=== PATIENT | male | born 1995 | race Two or more races ===

== ENCOUNTER 2020-07-14 19:11 | Emergency (ER) | payer MEDICAID, SELFPAY ==
[2020-07-14 20:44] VITALS: BP 110/63; PULSE 88; RESP 16; TEMP 36.3; O2SAT 100
--- NOTE | 2020-07-14 21:34 | ED.MALEGU ---
HPI - Male Genitourinary General Chief complaint: Urogenital-Male Stated complaint: painful urination, and discharge Time Seen by Provider: 07/14/20 21:21 History of Present Illness HPI Narrative: Patient is a 24-year-old male presents today with having pain on urination is been ongoing for the last 2 days now with yellowish discharge. Patient is sexually active with 1 partner but did not use condoms. Did not have any testicular pain. Patient has no systemic complaints. Patient's home home. Related Data Previous Rx's Medication Instructions Recorded doxycycline hyclate 100 mg PO BID #14 tab 07/14/20 Allergies Allergy/AdvReac Type Severity Reaction Status Date / Time [facility] Allergy Intermediate LIP Verified 07/14/20 20:51 SWELLING citric acid Allergy Intermediate LIP Verified 07/14/20 20:51 [From [facility]] SWELLING sodium bicarbonate Allergy Intermediate LIP Verified 07/14/20 20:51 [facility] SWELLING ENVIRONMENTAL AdvReac Unknown RASH Uncoded 12/28/19 18:00 Review of Systems Review of Systems: Constitutional: No Weight loss, No Fever, No Chills, No Night Sweats, No Fatigue, No Malaise ENT/Mouth: No Hearing loss, No Ear Pain, No Nasal Congestion, No Sinus Pain, No Hoarseness, No sore throat, No Rhinorrhea, No Swallowing Difficulty Eyes: No Eye Pain, No Swelling, No Redness, No Foreign Body, No Discharge, No Vision Changes Cardiovascular: No Chest Pain, No SOB, No Dyspnea on Exertion, No Orthopnea, No Edema, No Palpitations Respiratory: No Cough, No Sputum, No Wheezing, No Smoke Exposure, No Dyspnea Gastrointestinal: No Nausea, No Vomiting, No Diarrhea, No Constipation, No abdominal Pain, No Hematochezia, No Melena Genitourinary: no irregular bleeding, positive penile discharge Musculoskeletal: No joint pain, No Myalgias, No Joint Swelling Skin: No Skin Lesions, No rash Neuro: No Weakness, No Numbness, No Paresthesias, No Loss of Consciousness, No Dizziness, No Headache Psych: No Anxiety/Panic, No Depression, No SI/HI/AH/VH, No Social Issues, Heme/Lymph: No Bruising, No Bleeding,No Lymphadenopathy Endocrine: No Polyuria, No Polydipsia, No Temperature Intolerance [facility] Past Medical History Attestation statement: The following information was validated with the patient. Medical History (Updated 07/14/20 @ 21:34 by Ashwini Lopez MD) Allergic urticaria Social History Social History Smoking Status: Never smoker Use of substances other than those prescribed or required for medical reasons: No Advance Directives: No Advance Directives Information Provided: Yes Physical Exam Vital Signs: Vital Signs: Last Vital Signs Temp 97.3 F 07/14/20 20:44 Pulse 88 07/14/20 20:44 Resp 16 07/14/20 20:44 BP 110/63 07/14/20 20:44 Pulse Ox 100 07/14/20 20:44 Body Mass Index 20.0 Appearance: Alert. Oriented X3. No acute distress. Eyes: Pupils equal, round and reactive to light. ENT: Pharynx normal. Neck: Normal inspection. Neck supple. No lymph nodes noted. No crepitus CVS: Normal heart rate and rhythm. Pulses normal. Normal S1 and S2 Respiratory: No respiratory distress. Breath sounds normal. No Wheezing. No rales Abdomen: Soft and nontender. No rigidity. No distention. good BS x4 Skin: Skin warm and dry. Normal skin color. Normal skin turgor. Extremities: No lower extremity edema. Neurovascular intact to all extremities. No Lacerations. No Rash Neuro: Oriented X 3. No motor deficit. No sensory deficit. Moving all extermities. No slurred speech MDM - Male Genitourinary MDM Narrative Medical decision making narrative: Positive yellowish discharge from the penis. Will discharge patient home with 1 dose of Rocephin IM. Also give doxycycline twice a day x7 days. Patient warned that sexual partner should also be tested. Refrain from sexual contact until partners are tested and treated. Currently in stable condition with discharge patient home. Discharge Plan Discharge Clinical Impression: Urethritis Patient Disposition: Home, Self-Care Instructions: Gonorrhea (ED), Nonspecific Urethritis in Men (ED) Prescriptions: New doxycycline hyclate 100 mg tablet 100 mg PO BID Qty: 14 RF: 0 Referrals: [facility] [Primary Care Provider] - 2 days
[2020-07-14 22:00] LABS: Glucose Urine UA NEG (NEG); Leukocyte Esterase Urine NEG (NEG); Nitrite Urine NEG (NEG); Specific Gravity - Urine 1.025 (1.005-1.025); Urine Blood NEG (NEG); Urine Ketones NEG (NEG); Urine Protein NEG (NEG-TRACE)
[2020-07-14 22:03] LABS: Appearance Urine HAZY; Color Urine YELLOW
[2020-07-14] MEDS: cefTRIAXone sodium 500 MG VIAL IM (22:15)
--- NOTE | 2020-07-14 22:15 | PC.NURSE ---
DR BECKER AWARE THAT THIS NURSE OVERRIDE THE LIDOCAINE 1% TO DILUTE THE ROCEPHIN IM BECAUSE THERE WAS NO ORDER. DR BECKER SAID HE WOULD PUT AN ORDER IN.
[2020-07-15 10:14] LABS: CT PCR DETECTED (Not Detect.); NG PCR DETECTED (Not Detect.)
== END 2020-07-14 22:27 | disposition home or self-care (01) ==
PROVIDERS: Emergency Provider Emergency Medicine Emergency Medical Services
DX: N34.2 Other urethritis (principal); A54.09 Other gonococcal infection of lower genitourinary tract; A74.9 Chlamydial infection, unspecified; R36.9 Urethral discharge, unspecified
CPT/HCPCS: 81003; 87491; 87591; 96372; 99283; 99284; J0696

== ENCOUNTER 2021-02-24 22:08 | Emergency (ER) | payer MEDICAID, SELFPAY ==
[2021-02-24 22:21] VITALS: BP 111/90; PULSE 60; RESP 17; TEMP 36.7; O2SAT 98; BMI 19.7
--- NOTE | 2021-02-25 00:28 | ED_ITS ---
HPI - GI Bleed General Chief complaint: General Medical Stated complaint: hemorrhoids Time Seen by Provider: 02/24/21 23:48 Source: patient Mode of arrival: ambulatory Limitations: no limitations History of Present Illness HPI Narrative: 25-year-old male who reports he has a past medical history of hemorrhoids presenting to the ED with complaints of a hemorrhoid that has not gone down for approximately 1 week despite using Preparation-H. Denies any fevers, chills, nausea/vomiting, rashes, abdominal pain, rectal bleeding, any recent rectal intercourse or trauma or any other symptoms complaints or concerns at this time. MD complaint: other (Hemorrhoids) Onset (ago): week(s) (1) Pain Consistency: constant Severity: severe Relieving factors: none Exacerbating factors: bowel movement Context: hemorrhoids Associated symptoms: denies other symptoms Treatments Prior to Arrival: OTC meds (Preparation H) Related Data Previous Rx's Medication Instructions Recorded doxycycline hyclate 100 mg tablet 100 mg PO BID #14 tab 07/14/20 Allergies Allergy/AdvReac Type Severity Reaction Status Date / Time aspirin [From [facility]] Allergy Intermediate LIP Verified 02/24/21 22:20 SWELLING citric acid Allergy Intermediate LIP Verified 02/24/21 22:20 [From [facility]] SWELLING sodium bicarbonate Allergy Intermediate LIP Verified 02/24/21 22:20 [From [facility]] SWELLING ENVIRONMENTAL AdvReac Unknown RASH Uncoded 12/28/19 18:00 Review of Systems Review of Systems: Constitutional : No Weight loss, No Fever, No Chills, No Night Sweats, No Fatigue, NoMalaise ENT/Mouth: No ear pain, No sore throat, No Difficulty swallowing Cardiovascular : No Chest Pain, No SOB, No Dyspnea on Exertion, No Orthopnea, NoEdema, No Palpitations Respiratory : No Cough, No Sputum, No Wheezing, No Dyspnea Gastrointestinal : No Nausea, No Vomiting, No abdominal pain, No Diarrhea, No blood streaked emesis, No coffee-ground emesis, No gross hematemesis, No blood streak stool, No gross hematochezia, No Melena Genitourinary : + hemorrhoids, No irregular bleeding, No Dysuria, No Urinary Frequency, No Hematuria,No Urinary Incontinence, No Urgency, No Flank Pain Musculoskeletal : No joint pain, No Myalgias, No Joint Swelling Skin : No Skin Lesions, No rash Neuro : No Weakness, No Numbness, No Paresthesias, No Loss of Consciousness, NoDizziness, No Headache Psych : No Social Issues, Heme/Lymph: No Bruising, No Bleeding,No Lymphadenopathy Endocrine : No Polyuria, No Polydipsia, No Temperature Intolerance Yes all other systems are reviewed and are negative [facility] Past Medical History Attestation statement: The following information was validated with the patient. Medical History Acute hemorrhoid Allergic urticaria Social History Social History Advance Directives: No Advance Directives Information Provided: Yes Physical Exam Vital Signs: Vital Signs: Last Vital Signs Temp 98.0 F 02/24/21 22: Pulse 60 02/24/21 22:21 Resp 17 02/24/21 22:21 BP 111/90 H 02/24/21 22: Pulse Ox 98 02/24/21 22: Body Mass Index 19.7 vital signs have been reviewed as normal and appeared to be correct. Blood pressure normal. Heart rate normal. Respiration rate normal. Temperature normal. Oxygen saturation normal. Appearance: Alert. Oriented X3. No acute distress. Head: Normal external exam. Normocephalic. Eyes: PERRLA. EOMI. Conjunctiva and sclera normal. Eyelids normal. ENT: Pharynx normal. Uvula midline. Moist mucous membranes. Neck: Normal inspection. Neck supple. FROM. No adenopathy. No meningeal signs. CVS: Normal heart rate and rhythm. Heart sound normal. No murmurs noted. Pulses normal throughout. Respiratory: No respiratory distress. Painless inspiration. Breath sounds normal. No wheezes/rales/rhonchi noted. Chest nontender. No accessory muscle usage noted or decreased air movement noted. Abdomen: Soft and nontender. Nondistended. No guarding. No rigidity. Bowel sounds normal in all 4 quadrants. No distention noted. No organomegaly noted. No visible injury noted. No rebound tenderness. Negative Rovsing sign. Negative obturator's sign. Negative psoas sign. Negative Townsend sign. : Patient noted to have a thrombosed external hemorrhoid no active bleeding or foreign bodies noted. Back: No CVA tenderness. Full range of motion noted. Skin: Skin warm and dry. Normal skin color. Normal skin turgor. No rashes/lesions/lacerations noted. Extremities: Extremities exhibit normal range of motion. Extremities nontender. Neuro: Oriented X 3. No motor deficit. No sensory deficit. Reflexes normal. Normal steady gait. Course Course Course Narrative: 25-year-old male who reports he has a past medical history of hemorrhoids presenting to the ED with complaints of a hemorrhoid that has not gone down for approximately 1 week despite using Preparation-H. Denies any fevers, chills, nausea/vomiting, rashes, abdominal pain, rectal bleeding, any recent rectal intercourse or trauma or any other symptoms complaints or concerns at this time. On exam patient noted to have a thrombosed external hemorrhoid and I explained to the patient that I will be having to I&D the hemorrhoid and he accepted the procedure so we moved him into another room and then when the tech went into the room to set up the procedure apparently the sister was in the room and she was not in the room when I evaluated the patient and she asked the tech what was going on with the patient and the tech told the patient that he should tell her his diagnosis if he feels comfortable because it is not in her scope of practice to tell a patient's family member a patient's diagnosis especially if it is a personal diagnosis. Then the sister started to explain that the tech also did not want to explain the procedure to her and that she was very rude about it. I explained to the sister that is not the tech scope of practice to explain a procedure to a patient when that is my job. Then I asked her to step out of the room while I performed the procedure and she continued to yell saying that she was not going anywhere until her brother received pain meds I explained to her that we should give numbing medication for hemorrhoids and she told her brother that she was not going to stay here and that he was not going to stay here and he was not going to be treated here and that they would be going to [facility] and she walked out of the room with the patient MDM - GI Bleed Medical Records Attestation: I reviewed the patient's medical records. Discharge Plan Discharge Clinical Impression: External hemorrhoid, thrombosed Patient Disposition: Elopement Prescriptions: No Action doxycycline hyclate 100 mg tablet 100 mg PO BID Qty: 14 RF: 0
--- NOTE | 2021-02-25 00:30 | PC.NURSE ---
PROVIDER WAS IN ROOM TO DO PROCEDURE. PT'S SISTER HAD COME INTO ROOM AND WAS ARGUING WITH PROVIDER. SISTER TOOK PATIENT AND SAID THAT THEY WERE LEAVING AND LEFT ROOM AND WENT BACK INTO [facility].
[2021-02-25] MEDS: Lidocaine HCl 2 % Jelly 5 ML TUBE 1 APPL TOPICAL (02:02)
[2021-02-25 02:20] VITALS: BP 123/78; PULSE 63; RESP 16; O2SAT 100
[2021-02-25] MEDS: Lidocaine HCl 2 % Urojet 10 ML JEL.PF.APP TOPICAL (02:27)
== END 2021-02-25 02:39 | disposition home or self-care (01) ==
PROVIDERS: Emergency Provider Student in an Organized Health Care Education/Training Program
DX: K64.5 Perianal venous thrombosis (principal)
CPT/HCPCS: 46083; 99284

== ENCOUNTER 2023-03-15 21:58 | Emergency (ER) | payer MEDICAID, SELFPAY ==
--- NOTE | 2023-03-15 22:23 | ED_ITS ---
HPI - General Adult General Chief complaint: Skin/Abscess/Foreign Body Stated complaint: body rash Time Seen by Provider: 03/16/23 02:05 Source: patient Mode of arrival: ambulatory Limitations: no limitations History of Present Illness HPI narrative: unexplained rash - preceded by thanksgiving viral syndrome that has resolved and atraumatic low back pain that is better no IVDA symptoms no new exposures. MD complaint: rash Onset (ago): day(s) (3) Location: chest, back and abdomen Radiation: non-radiation Severity: moderate Relieving factors: none Exacerbating factors: none Associated symptoms: denies other symptoms Treatments prior to arrival: none Related Data Previous Rx's Medication Instructions Recorded doxycycline hyclate 100 mg tablet 100 mg PO BID #14 tabs 07/14/20 famotidine 20 mg tablet (Pepcid) 20 mg PO DAILY abdominal 03/16/23 discomfort #7 tabs prednisone 20 mg tablet 40 mg (2 x 20 mg) PO DAILY 5 days 03/16/23 #10 tabs Allergies Allergy/AdvReac Type Severity Reaction Status Date / Time aspirin [From [facility]] Allergy Intermediate LIP Verified 02/24/21 22:20 SWELLING citric acid Allergy Intermediate LIP Verified 02/24/21 22:20 [From [facility]] SWELLING sodium bicarbonate Allergy Intermediate LIP Verified 02/24/21 22:20 [From [facility]] SWELLING ENVIRONMENTAL AdvReac Unknown RASH Uncoded 12/28/19 18:00 Review of Systems 2 Review of Systems: Constitutional : No Fever, No Chills ENT/Mouth : No sore throat, No Rhinorrhea Eyes: No Eye Pain, No Swelling, No Redness Cardiovascular : No Chest Pain, No SOB Respiratory : No Cough, No Sputum Gastrointestinal : No Nausea, No Vomiting, No Diarrhea, No abdominal Pain Genitourinary : No Dysuria, No Hematuria Musculoskeletal : No joint pain, No Myalgias, No Joint Swelling Skin : No Skin Lesions, positive skin rash Neuro : No Weakness, No Numbness, No Headache Psych : No Anxiety, No Depression Heme/Lymph: No Bruising, No Bleeding,No Lymphadenopathy Endocrine : No Polyuria, No Polydipsia All other systems reviewed and are negative PMFSH Past Medical History Medical History Acute hemorrhoid Allergic urticaria Social History Social History (Updated 03/16/23 @ 02:33 by Lorrie Brown DO) Patient Tobacco Use Status: Never used Tobacco Physical Exam ED Vital Signs: Vital Signs - 24 hr 03/15/23 22:27 Temperature 98.7 F Pulse Rate 111 H Respiratory Rate 18 Blood Pressure 124/78 Pulse Oximetry 98 Oxygen Delivery Method Room Air BMI result Body Mass Index 19.4 Appearance: Alert. Oriented X3. No acute distress. Eyes: Pupils equal, round and reactive to light. ENT: Pharynx normal. Neck: Normal inspection. Neck supple. CVS: Normal heart rate and rhythm. Pulses normal. Respiratory: No respiratory distress. Breath sounds normal. Abdomen: Soft and nontender. Skin: Skin warm and dry. Normal skin color. Normal skin turgor. diffuse red raised hives on arms torso stomach and back Extremities: No lower extremity edema. No calf ttp Neuro: Oriented X 3. No motor deficit. No sensory deficit. Course Course Course Narrative: RME performed by Khadijah Schilling PA-C. Patient is a 27 year old assigned male at presenting to the emergency department with a rash after a URI. Labs and swabs ordered. Patient placed back in the waiting room pending room availability and results. Medical Decision Making Medical Decision Making [facility] Narrative: 27 yo male with urticarial rash starting over the past few days that is not itchy but not going away no resp issues, not toxic, has mild resolved MSK back pain no IVDA, resolved viral illness over - no petechia or bruising noted. labs normal start on pepcid and steroids told to follow up if not better Differential Diagnosis Differential Diagnoses: The differential diagnosis associated with the presentation includes urticaria or viral Admission/Observation Consideration of admission/observation: Escalation of care including admission/observation considered Lab Data [facility] Lab Attestation statement: I reviewed the patient's lab results. 03/16/23 00:31 03/16/23 00:31 Labs: Lab Results 03/16/23 Range/Units 00:31 WBC 7.5 (4.8-10.8) X10*3/uL RBC 4.52 L (4.60-5.80) X10*6/uL Hgb 15.0 (14.0-18.0) g/dl Hct 43.4 (42.0-52.0) % MCV 96.0 (80.0-98.0) fL MCH 33.2 H (27.0-33.0) pg MCHC 34.6 (31.0-36.0) g/dl RDW 10.9 L (11.0-16.0) % Plt Count 349 (160-400) X10*3/uL MPV 9.5 (9.4-12.4) fL Immature Gran % (Auto) 0.3 (0.0-0.4) % Neut % (Auto) 75.1 H (45-73) % Lymph % (Auto) 18.1 L (20-40) % Stephenson % (Auto) 6.4 (2-11) % Eos % (Auto) 0.0 (0-4) % Baso % (Auto) 0.1 (0-2) % Lymph # (Auto) 1.4 (1.2-4.9) X10*3/uL Stephenson # (Auto) 0.5 (0.1-1.2) X10*3/uL Eos # (Auto) 0.0 (0.0-0.4) X10*3/uL Baso # (Auto) 0.0 (0.0-0.2) X10*3/uL Abs Immat Gran (auto) 0.02 (0.00-0.03) X10*3/uL Absolute Neuts (auto) 5.7 (2.0-8.3) x10*3/uL Absolute Nucleated RBC 0.000 (0.0-0.012) X10*3/uL Nucleated RBC % (auto) 0.0 (0.0-0.2) /100WBC Sodium 139 (135-145) mmol/L Potassium 4.0 (3.3-5.1) mmol/L Chloride 104 (96-108) mmol/L Carbon Dioxide 28 (22-29) mmol/L Anion Gap 11 L (12-20) BUN 9 (9-16) mg/dL Creatinine 0.95 (0.5-1.4) mg/dL Estim Creat Clear Calc 115.1 Estimated GFR > 60 Random Glucose 102 (60-115) mg/dL Calcium 9.7 (8.4-10.2) mg/dL Magnesium 2.1 (1.6-2.6) mg/dL Total Bilirubin 1.3 H (0.0-1.0) mg/dL AST 18 (5-37) U/L ALT 13 (0-40) U/L Alkaline Phosphatase 99 (39-117) U/L Total Protein 8.5 H (6.5-8.0) g/dL Albumin 4.3 (3.5-5.0) g/dL Influenza Type A (PCR) NEGATIVE (Negative) Influenza Type B (PCR) NEGATIVE (Negative) RSV RNA Qual (PCR) NEGATIVE (Negative) SARS-CoV-2 RNA (RT-PCR) NEGATIVE (Negative) S. pyogenes GrpA LYNDON Negative (Negative) External Record Review External record reviewed: Office record Prescription Management I considered prescription management with: Other Discharge Plan Discharge Clinical Impression: Urticaria Patient Disposition: Home, Self-Care Instructions: Urticaria (ED) Additional Instructions: return if no improvement in rash, fevers, increased bruising, or any other concerns. take medications with food. avoid motrin while on medications Prescriptions: New prednisone 20 mg tablet 40 mg PO DAILY 5 Days Qty: 10 0RF famotidine [Pepcid] 20 mg tablet 20 mg PO DAILY Qty: 7 0RF No Action doxycycline hyclate 100 mg tablet 100 mg PO BID Qty: 14 0RF
[2023-03-15 22:27] VITALS: BP 124/78; PULSE 111; RESP 18; TEMP 37.1; O2SAT 98; BMI 19.4
[2023-03-16 00:37] LABS: MANUAL DIFF FLAG NO
[2023-03-16 00:54] LABS: Alanine Aminotransferase 13 U/L (0-40); Albumin Level 4.3 g/dL (3.5-5.0); Alkaline Phosphatase 99 U/L (39-117); Anion Gap 11 (12-20); Aspartate Amino Transferase 18 U/L (5-37); Bilirubin Total 1.3 mg/dL (0.0-1.0); Blood Urea Nitrogen 9 mg/dL (9-16); Calcium 9.7 mg/dL (8.4-10.2); Carbon Dioxide 28 mmol/L (22-29); Chloride 104 mmol/L (96-108); Creatinine Clr Calc Pharmacy 115.1; Estimated Glomerular Filt Rate > 60; Glucose Random 102 mg/dL (60-115); Magnesium 2.1 mg/dL (1.6-2.6); Sodium 139 mmol/L (135-145); Total Protein 8.5 g/dL (6.5-8.0)
[2023-03-16 00:57] LABS: IDNOW Serial# 08D9AD1C; Strep A Nucleic Acid Negative (Negative)
[2023-03-16 01:12] LABS: Basophils Percent Auto 0.1 % (0-2); Hematocrit 43.4 % (42.0-52.0); Imm Gran Abs Auto 0.02 X10*3/uL (0.00-0.03); Imm Gran Pct Auto 0.3 % (0.0-0.4); Lymphocytes Absolute Auto 1.4 X10*3/uL (1.2-4.9); Lymphocytes Percent Auto 18.1 % (20-40); Mean Corpuscular HGB Conc 34.6 g/dl (31.0-36.0); Mean Corpuscular Hemoglobin 33.2 pg (27.0-33.0); Mean Platelet Volume 9.5 fL (9.4-12.4); Monocytes Absolute Auto 0.5 X10*3/uL (0.1-1.2); Monocytes Percent Auto 6.4 % (2-11); Neutrophils Absolute Auto 5.7 x10*3/uL (2.0-8.3); Neutrophils Percent Auto 75.1 % (45-73); Platelet Count 349 X10*3/uL (160-400); Red Blood Count 4.52 X10*6/uL (4.60-5.80); Red Cell Distribution Width 10.9 % (11.0-16.0); White Blood Count 7.5 X10*3/uL (4.8-10.8)
[2023-03-16 01:13] LABS: Influenza A PCR NEGATIVE (Negative); Influenza B PCR NEGATIVE (Negative); Resp Syncy Virus RNA Qual PCR NEGATIVE (Negative); SARS COV2 PCR INHOUSE NEGATIVE (Negative)
== END 2023-03-16 02:46 | disposition home or self-care (01) ==
PROVIDERS: Physician Assistant Medical; Emergency Provider Emergency Medicine; PCP General Practice
DX: L50.0 Allergic urticaria (principal); Z20.822 Contact with and (suspected) exposure to COVID-19; Z20.828 Contact with and (suspected) exposure to other viral communicable diseases; Z79.899 Other long term (current) drug therapy
CPT/HCPCS: 0241U; 80053; 83735; 85025; 87651; 99282; 99283

== ENCOUNTER 2023-03-24 16:19 | Outpatient (REF) | payer MEDICAID, SELFPAY ==
[2023-03-25 02:23] LABS: CT PCR NOT DETECTED (Not Detect.); NG PCR NOT DETECTED (Not Detect.)
[2023-03-25 08:11] LABS: HIV AB/AG Nonreactive (Nonreactive); HIV Num 1 0.06 S/CO (0.00-0.99); ~HepC Num1 0.53 S/CO (0.00-0.79); ~Hepatitis C Antibody Nonreactive (Nonreactive)
[2023-03-29 15:18] LABS: RPR Rapid Plasma Reagin REACTIVE (NON-REACTIVE)
== END 2023-03-24 16:20 | disposition home or self-care (01) ==
LOC: HO.HHCL 16:19
PROVIDERS: Visit Provider General Practice
DX: R21 Rash and other nonspecific skin eruption (principal)
CPT/HCPCS: 0353U; 86592; 86593; 86803; 87389

== ENCOUNTER 2023-04-01 19:30 | Emergency (ER) | payer MEDICAID, SELFPAY ==
[2023-04-01 19:36] VITALS: BP 115/77; PULSE 115; RESP 18; TEMP 37; O2SAT 97; BMI 25.8
--- NOTE | 2023-04-01 19:37 | ED_ITS ---
HPI - General Adult General Chief complaint: Urogenital-Male Stated complaint: Allergy? STD? Time Seen by Provider: 04/01/23 20:58 Source: patient and old records reviewed Mode of arrival: ambulatory Limitations: no limitations History of Present Illness HPI narrative: 27 yo male with rash that started in beginning of February that initially was just hives no systemic or complaints - was treated with urticarial medications it did not i mprove and he started to have malaise and fatigue and not feel well. He saw his PCP after and disclosed unprotected sex and systemic symptoms so RPR was sent off and came back positive 03/25. He states the PCP kept contacting his mom so he didn't get treatment for one week so he is very upset they didn't call him. I explained he has early syphillis and we can give him a penicillin shot at this time MD complaint: + syphillis test Onset (ago): day(s) (7) Location: chest, genitals, left, right and upper extremity Radiation: non-radiation Severity: mild Relieving factors: none Exacerbating factors: none Associated symptoms: other (rash, malaise, had flu like illness before the still has rash on penis and palms) Treatments prior to arrival: none Related Data Previous Rx's Medication Instructions Recorded doxycycline hyclate 100 mg tablet 100 mg PO BID #14 tabs 07/14/20 famotidine 20 mg tablet (Pepcid) 20 mg PO DAILY abdominal 03/16/23 discomfort #7 tabs prednisone 20 mg tablet 40 mg (2 x 20 mg) PO DAILY 5 days 03/16/23 #10 tabs Allergies Allergy/AdvReac Type Severity Reaction Status Date / Time aspirin [From [facility]] Allergy Intermediate LIP Verified 04/01/23 19:46 SWELLING citric acid Allergy Intermediate LIP Verified 04/01/23 19:46 [From [facility]] SWELLING sodium bicarbonate Allergy Intermediate LIP Verified 04/01/23 19:46 [From [facility]] SWELLING naproxen [From [facility]] Allergy Swelling Verified 04/01/23 19:46 ENVIRONMENTAL AdvReac Unknown RASH Uncoded 12/28/19 18:00 Review of Systems Review of Systems: Constitutional : No Fever, No Chills, pos fatigue, pos malaise ENT/Mouth : no oral swelling, No Hoarseness, No Swallowing Difficulty Eyes: No Eye Pain, No Swelling, No Redness Cardiovascular : No Chest Pain, No SOB Respiratory : No Cough, No Sputum, No Wheezing, No Dyspnea Gastrointestinal : No Nausea, No Vomiting, No Diarrhea, No abdominal Pain Genitourinary : No Dysuria, No Urinary Frequency, No Hematuria Musculoskeletal : No joint pain, No Myalgias, No Joint Swelling Skin : pos Skin Lesions, positive rash Neuro : No Weakness, No Numbness, No Headache Psych : No Anxiety/Panic, No Depression All other systems reviewed and are negative [facility] Past Medical History Attestation statement: The following information was validated with the patient. Source: old records reviewed Medical History Acute hemorrhoid Allergic urticaria Social History Social History Patient Tobacco Use Status: Never used Tobacco Advance Directives: No Advance Directives Information Provided: No Physical Exam ED Vital Signs: Vital Signs - 24 hr 04/01/23 19:36 Temperature 98.6 F Pulse Rate 115 H Respiratory Rate 18 Blood Pressure 115/77 Pulse Oximetry 97 Oxygen Delivery Method Room Air BMI result Body Mass Index 25.8 Appearance: Alert. Oriented X3. No acute distress. slightly agitated Eyes: Pupils equal, round and reactive to light. ENT: Pharynx normal. Neck: Normal inspection. Neck supple. CVS: Normal heart rate and rhythm. Pulses normal. Respiratory: No respiratory distress. Breath sounds normal. Abdomen: Soft and nontender. Skin: Skin warm and dry. Normal skin color. Normal skin turgor. flat pink lesions on palms, lower abdomen and shaft of penis Extremities: No lower extremity edema. Neuro: Oriented X 3. No motor deficit. No sensory deficit. Course Course Course Narrative: RME: 27yo M w/PMHx gonorrhea, presenting to the ED c/o painless rash diffusely over body x weeks, saw PCP and STI testing was performed. States his mother received 2 phone calls today and hes usure why. Appears patient Syphilis titer & RPR are positive from 03/24/23 > was not tx to his knowledge. Patient needs tx diffuse rash noted over body Full HPI, ROS and PE to be performed by primary ED provider. 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 Differential Diagnosis Differential Diagnoses: The differential diagnosis associated with the presentation includes known pos syphillis test Lab Data [facility] Lab Attestation statement: I reviewed the patient's lab results. External Record Review External record reviewed: Inpatient record, Outpatient record and Prior outpatient labs Discharge Plan Discharge Clinical Impression: Acquired syphilis Patient Disposition: Home, Self-Care Instructions: Penicillin G Benzathine/Penicillin G Procaine (By injection), Syphilis (ED) Additional Instructions: you need to practice safe sex. your partner should be notified and you should not have intercourse until both are treated. return for worsening symptoms, fevers, or any other concerns. please follow up with your doctor in one week. Prescriptions: No Action doxycycline hyclate 100 mg tablet 100 mg PO BID Qty: 14 0RF prednisone 20 mg tablet 40 mg PO DAILY 5 Days Qty: 10 0RF famotidine [Pepcid] 20 mg tablet 20 mg PO DAILY Qty: 7 0RF
[2023-04-01] MEDS: Penicillin G Benzathine 2,400,000 UNIT/4 ML SYRINGE 2400000 UNIT IM (21:48)
== END 2023-04-01 21:54 | disposition home or self-care (01) ==
PROVIDERS: Emergency Provider Emergency Medicine; PCP General Practice
DX: A51.0 Primary genital syphilis (principal); L50.8 Other urticaria; R53.81 Other malaise; Z79.899 Other long term (current) drug therapy
CPT/HCPCS: 96372; 99282; 99284; J0561

== ENCOUNTER 2023-04-26 18:02 | Emergency (ER) | payer MEDICAID, SELFPAY ==
--- NOTE | ~2023-04-26 | US_ITS ---
EXAMINATION: US ABDOMEN LIMITED CLINICAL INFORMATION: Pain. COMPARISON: None available. TECHNIQUE: Real-time imaging of the right upper quadrant abdominal viscera. FINDINGS: PANCREAS: Not assessed. LIVER: Visualized liver is normal in appearance. There is no intrahepatic biliary duct dilatation seen. GALLBLADDER: The gallbladder is physiologically distended. There is a single mobile gallstone within the gallbladder. There is also a 5 x 2 x 3 mm echogenic structure adherent to the gallbladder wall. There is no gallbladder wall thickening or pericholecystic fluid. The patient did not report pain when scanning the right upper quadrant. COMMON BILE DUCT: Normal in caliber measuring 0.23 cm in diameter. RIGHT KIDNEY: Not assessed FREE FLUID: None. US/US abdomen limited IMPRESSION: 1. Cholelithiasis. No evidence of acute cholecystitis. 2. 5 x 2 x 3 mm echogenic structure adherent to the gallbladder wall, likely representing a small polyp.
--- NOTE | ~2023-04-26 | XR_ITS ---
EXAMINATION: XR CHEST CLINICAL INFORMATION: Cough. COMPARISON: None available. TECHNIQUE: 2 views of the chest were obtained. FINDINGS: No significant abnormality is noted involving the heart, lungs, mediastinum, bony thorax or soft tissues. XR/XR chest 2V IMPRESSION: Unremarkable examination.
[2023-04-26 19:25] VITALS: BP 90/61; PULSE 88; RESP 17; TEMP 37; O2SAT 99
[2023-04-26 21:31] VITALS: BP 111/60; PULSE 97; RESP 18; TEMP 36.6; O2SAT 97
--- NOTE | 2023-04-26 23:24 | ED_ITS ---
HPI - General Adult General Chief complaint: Nausea/Vomiting/Diarrhea Stated complaint: vomiting Time Seen by Provider: 04/26/23 22:46 Source: patient, RN notes reviewed and old records reviewed Mode of arrival: ambulatory Limitations: no limitations History of Present Illness HPI narrative: 27-year-old male with no significant past medical history presents for evaluation of vomiting. Patient reports he started coughing 2-3 days ago. Denies any shortness of breath. He also complains of a headache He reports that he vomited multiple times today He reports chills but denies fevers. He reports that his roommate had similar symptoms a few days ago Denies any severe abdominal pains Related Data Previous Rx's Medication Instructions Recorded doxycycline hyclate 100 mg tablet 100 mg PO BID #14 tabs 07/14/20 famotidine 20 mg tablet (Pepcid) 20 mg PO DAILY abdominal 03/16/23 discomfort #7 tabs prednisone 20 mg tablet 40 mg (2 x 20 mg) PO DAILY 5 days 03/16/23 #10 tabs ondansetron 4 mg disintegrating 4 mg PO Q8H PRN nausea and 04/27/23 tablet vomiting #20 tabs Allergies Allergy/AdvReac Type Severity Reaction Status Date / Time aspirin [From HEATHER-SELTZER] Allergy Intermediate LIP Verified 04/01/23 19:46 SWELLING citric acid Allergy Intermediate LIP Verified 04/01/23 19:46 [From HEATHER-SELTZER] SWELLING sodium bicarbonate Allergy Intermediate LIP Verified 04/01/23 19:46 [From HEATHER-SELTZER] SWELLING naproxen [From Aleve] Allergy Swelling Verified 04/01/23 19:46 ENVIRONMENTAL AdvReac Unknown RASH Uncoded 12/28/19 18:00 Review of Systems 2 Constitutional: Constitutional: Reports body ache(s), Denies chills, Denies fever(s) and Reports headache(s) Eyes: Eyes: Denies blurry vision ENT: Reports headache(s) Cardiovascular: Cardiovascular: Denies chest pain and Denies dyspnea Respiratory: Respiratory: Reports cough and Denies dyspnea Gastrointestinal: Gastrointestinal: Denies abdominal pain, Denies hematochezia, Reports nausea and Reports vomiting Musculoskeletal: Musculoskeletal: Denies back pain Integumentary/Breasts: Skin/Breast: Denies rash Neurologic: Reports headache(s) PMFSH Past Medical History Onset Date is defined in the Problem List Problems that require an onset date and time if occurred within 24 hrs of arrival to the ED Aortic Dissection and Rupture; Neurologic impairment; Cardiopulmonary Arrest; Endotracheal Intubation; Insertion or Replacement of Mechanical Circulatory Assist Device Medical History Acute hemorrhoid Allergic urticaria Social History Social History Alcohol intake: current Alcohol intake frequency: holidays/special occasions only Patient Tobacco Use Status: Never used Tobacco Smoked in Last 30 Days: No Use of substances other than those prescribed or required for medical reasons: Yes Substance Use Type: Marijuana Advance Directives: No Advance Directives Information Provided: No Physical Exam ED Vital Signs: Vital Signs - 24 hr 04/26/23 19:25 04/26/23 21:31 04/27/23 00:29 Temperature 98.6 F 97.8 F 98.1 F Pulse Rate 88 97 90 Respiratory Rate 17 18 16 Blood Pressure 90/61 111/60 112/66 Pulse Oximetry 99 97 94 Oxygen Delivery Method Room Air Room Air Room Air BMI result Body Mass Index 20.0 Const General: healthy appearing, comfortable, no acute distress, alert and awake Nutritional Appearance: well nourished Orientation/consciousness: patient oriented x3 HENMT Head: Yes normocephalic and Yes atraumatic Eyes Eyelids: Yes eyelids normal Conjunctivae: conjunctivae normal Sclerae: sclerae normal Corneas: corneas normal Pupils: Equal, round and reactive pupils present EOM: EOMs intact bilaterally Neck Neck: Yes full ROM Resp Effort & Inspection: normal respiratory effort, able to speak in complete sentences, no audible wheezes and not labored Auscultation: clear to auscultation bilaterally Cardio Rate: regular rate Rhythm: regular rhythm GI Inspection: No distended Palpation (GI): Soft to palpation, not firm, nontender, no guarding and not rigid Auscultation: normoactive bowel sounds Skin General skin exam: no rashes or lesions noted and elasticity normal Neuro General: patient oriented x3 Cranial nerves: Yes Equal, round and reactive pupils present and Yes Bilaterally intact EOM present Cognition (Neuro): normal cognition Extrem Other: Moving all extremities well without any obvious deformities Course Reevaluation(s) Reevaluation #1: Patient's influenza was negative and therefore added basic labs which of the T bili of 3.9. Given the abdominal pain and vomiting ordered an ultrasound of the gallbladder which did not show any concerning abnormalities. There was 1 small gallstone noted however there is no evidence of pericholecystic fluid, no gallbladder wall thickening or CBD dilatation. The patient can be discharged to follow-up with surgery as an outpatient will discharge with p.o. Zofran Time: 02:24 Medications Administered Discontinued Medications Generic Name Dose Route Start Last Admin Trade Name Freac PRN Reason Stop Dose Admin Ondansetron HCl 4 mg 04/26/23 23:19 04/27/23 00:15 Ondansetron Odt 4 Mg Tab.Rapdis TRANSLINGU 04/26/23 23:20 4 mg ONCE ONE Administration Medical Decision Making Medical Decision Making [facility] Narrative: 27-year-old male with no significant past medical history presents for evaluation of cough, body aches and vomiting. His physical exam is reassuring his vital signs are stable. We will give a dose of Zofran, test the patient for influenza and COVID-19. I have high suspicion for influenza a. Will reconsider labs if he is viral negative, however given the reassuring exam and stable vitals I have a low suspicion for surgical abdomen Differential Diagnosis Differential Diagnoses: The differential diagnosis associated with the presentation includes Viral syndrome COVID-19 Influenza Upper respiratory infection Nausea and vomiting Gastroenteritis Lab Data MDM Lab Attestation statement: I reviewed the patient's lab results. No leukocytosis, no significant electrolyte abnormalities. Patient's T bili was elevated to 3.9. LFTs are all within normal limits. 04/27/23 00:07 04/27/23 00:07 Labs: Lab Results 04/26/23 04/27/23 Range/Units 23:00 00:07 WBC 10.3 (4.8-10.8) X10*3/uL RBC 4.90 (4.60-5.80) X10*6/uL Hgb 16.3 (14.0-18.0) g/dl Hct 47.4 (42.0-52.0) % MCV 96.7 (80.0-98.0) fL MCH 33.3 H (27.0-33.0) pg MCHC 34.4 (31.0-36.0) g/dl RDW 11.8 (11.0-16.0) % Plt Count 258 D (160-400) X10*3/uL MPV 8.7 L (9.4-12.4) fL Immature Gran % (Auto) 0.2 (0.0-0.4) % Neut % (Auto) 89.6 H (45-73) % Lymph % (Auto) 7.0 L (20-40) % [place] % (Auto) 2.6 (2-11) % Eos % (Auto) 0.4 (0-4) % Baso % (Auto) 0.2 (0-2) % Lymph # (Auto) 0.7 L (1.2-4.9) X10*3/uL [place] # (Auto) 0.3 (0.1-1.2) X10*3/uL Eos # (Auto) 0.0 (0.0-0.4) X10*3/uL Baso # (Auto) 0.0 (0.0-0.2) X10*3/uL Abs Immat Gran (auto) 0.02 (0.00-0.03) X10*3/uL Absolute Neuts (auto) 9.2 H (2.0-8.3) x10*3/uL Absolute Nucleated RBC 0.000 (0.0-0.012) X10*3/uL Nucleated RBC % (auto) 0.0 (0.0-0.2) /100WBC Sodium 139 (135-145) mmol/L Potassium 4.5 (3.3-5.1) mmol/L Chloride 102 (96-108) mmol/L Carbon Dioxide 28 (22-29) mmol/L Anion Gap 14 (12-20) BUN 16 (9-16) mg/dL Creatinine 1.09 (0.5-1.4) mg/dL Estim Creat Clear Calc 103.5 Estimated GFR > 60 Random Glucose 115 (60-115) mg/dL Calcium 9.8 (8.4-10.2) mg/dL Total Bilirubin 3.9 H (0.0-1.0) mg/dL AST 21 (5-37) U/L ALT 21 (0-40) U/L Alkaline Phosphatase 82 (39-117) U/L Total Protein 8.1 H (6.5-8.0) g/dL Albumin 4.6 (3.5-5.0) g/dL Lipase 11 (8-78) U/L COVID-19 (ELAINE) Negative (Negative) COVID-19 Clin Com See Note Influenza Type A (LYNDON) Negative (Negative) Influenza Type B (LYNDON) Negative (Negative) Influenza A & B Note See Note Independent Interpretation I performed an independent interpretation of an: Plain X-Ray (Unremarkable chest x-ray) and Ultrasound (No evidence of gallbladder wall thickening or CBD dilatation) Discharge Plan Discharge Clinical Impression: Cholelithiasis Patient Disposition: Home, Self-Care Instructions: Gallstones (ED) Additional Instructions: Your workup showed an elevated total bilirubin and therefore a gallbladder ultrasound was ordered which shows 1 gallstone but no evidence of gallbladder infection. The rest of your workup was reassuring. Use Zofran as needed for nausea/vomiting. Drink lots of fluids, small sips at a time You may follow-up with general surgery as an outpatient for elective gallbladder removal Prescriptions: New ondansetron 4 mg tablet,disintegrating 4 mg PO Q8H PRN (Reason: nausea and vomiting) Qty: 20 0RF No Action doxycycline hyclate 100 mg tablet 100 mg PO BID Qty: 14 0RF prednisone 20 mg tablet 40 mg PO DAILY 5 Days Qty: 10 0RF famotidine [Pepcid] 20 mg tablet 20 mg PO DAILY Qty: 7 0RF Referrals: Nicko Gauthier MD [Physician] - (Cholelithiasis)
[2023-04-26 23:38] LABS: COVID-19 Test Negative (Negative); IDNOW Serial# 08D9AD1C
[2023-04-26 23:39] LABS: IDNOW Serial# 152EDE1D; Influenza A Negative (Negative); Influenza B2 Negative (Negative)
[2023-04-27 00:11] LABS: MANUAL DIFF FLAG NO
[2023-04-27] MEDS: Ondansetron ODT 4 MG TAB.RAPDIS TRANSLINGU (00:15)
[2023-04-27 00:25] LABS: Basophils Percent Auto 0.2 % (0-2); Eosinophils Percent Auto 0.4 % (0-4); Hematocrit 47.4 % (42.0-52.0); Hemoglobin 16.3 g/dl (14.0-18.0); Imm Gran Abs Auto 0.02 X10*3/uL (0.00-0.03); Imm Gran Pct Auto 0.2 % (0.0-0.4); Lymphocytes Absolute Auto 0.7 X10*3/uL (1.2-4.9); Mean Corpuscular HGB Conc 34.4 g/dl (31.0-36.0); Mean Corpuscular Hemoglobin 33.3 pg (27.0-33.0); Mean Corpuscular Volume 96.7 fL (80.0-98.0); Mean Platelet Volume 8.7 fL (9.4-12.4); Monocytes Absolute Auto 0.3 X10*3/uL (0.1-1.2); Monocytes Percent Auto 2.6 % (2-11); Neutrophils Absolute Auto 9.2 x10*3/uL (2.0-8.3); Neutrophils Percent Auto 89.6 % (45-73); Platelet Count 258 X10*3/uL (160-400); Red Cell Distribution Width 11.8 % (11.0-16.0); White Blood Count 10.3 X10*3/uL (4.8-10.8)
[2023-04-27 00:29] VITALS: BP 112/66; PULSE 90; RESP 16; TEMP 36.7; O2SAT 94
[2023-04-27 00:31] LABS: Alanine Aminotransferase 21 U/L (0-40); Albumin Level 4.6 g/dL (3.5-5.0); Alkaline Phosphatase 82 U/L (39-117); Anion Gap 14 (12-20); Aspartate Amino Transferase 21 U/L (5-37); Bilirubin Total 3.9 mg/dL (0.0-1.0); Blood Urea Nitrogen 16 mg/dL (9-16); Calcium 9.8 mg/dL (8.4-10.2); Carbon Dioxide 28 mmol/L (22-29); Chloride 102 mmol/L (96-108); Creatinine Clr Calc Pharmacy 103.5; Estimated Glomerular Filt Rate > 60; Glucose Random 115 mg/dL (60-115); Lipase 11 U/L (8-78); Potassium 4.5 mmol/L (3.3-5.1); Sodium 139 mmol/L (135-145); Total Protein 8.1 g/dL (6.5-8.0)
[2023-04-27 03:13] VITALS: BP 110/60; PULSE 89; RESP 18; TEMP 36.6; O2SAT 97
== END 2023-04-27 03:14 | disposition home or self-care (01) ==
PROVIDERS: Physician Assistant; Emergency Provider Emergency Medicine; PCP General Practice
DX: K80.20 Calculus of gallbladder without cholecystitis without obstruction (principal); R11.2 Nausea with vomiting, unspecified; R05.9 Cough, unspecified; R10.2 Pelvic and perineal pain; Z11.52 Encounter for screening for COVID-19; Z20.828 Contact with and (suspected) exposure to other viral communicable diseases; Z79.899 Other long term (current) drug therapy
CPT/HCPCS: 36415; 71046; 76705; 80053; 83690; 85025; 87502; 87635; 99284

== ENCOUNTER 2023-05-12 13:28 | Outpatient (AMB) | payer MEDICAID, SELFPAY ==
--- NOTE | 2023-05-12 13:38 | MHC.OFFVIS ---
Intake Vital Signs 05/12/23 13:44 Height 6 ft 3 in Weight 160 lb 0.008 oz BMI 20.0 Intake Visit Reasons: [place] [facility] [place] Intake Note: This patient [place] [facility] [place] for Cholelithiasis. Pt c/o; reports no RUQ pain at this time, reports no postprandial nausea or vomiting. US ABD:04/27/[address] Clearer Required: No Accompanied by: Self / Same As Patient Allergies aspirin [From HEATHER-SELTZER] Allergy (Intermediate, Verified 05/12/23 13:45) LIP SWELLING citric acid [From HEATHER-SELTZER] Allergy (Intermediate, Verified 05/12/23 13:45) LIP SWELLING sodium bicarbonate [From HEATHER-SELTZER] Allergy (Intermediate, Verified 05/12/23 13:45) LIP SWELLING naproxen [From Aleve] Allergy (Verified 05/12/23 13:45) Swelling ENVIRONMENTAL Adverse Reaction (Unknown, Uncoded 05/12/23 13:45) RASH Medication List - Last Reconciled 05/12/23 by Nicko Gauthier MD doxycycline hyclate 100 mg PO BID famotidine (Pepcid) 20 mg PO DAILY ondansetron 4 mg PO Q8H PRN prednisone 40 mg (2 x 20 mg) PO DAILY 5 days HPI [place]iasis[place] [facility] [place] HPI Details 27-year-old male referred for a gallstone. He went to the ER last April 26, 2023 for what he described as multiple episodes of vomiting. He did not have any pain at that time. He says that he thought he had a stomach flu. He however was sent for had an ultrasound showing a 1 gallstone and a possible gallbladder polyp. He says that he has had no symptoms since that time. He denies any abdominal pain at all. Denies problems with oral intake. [facility] Medical History (Updated 05/12/23 @ 13:42 by Nicko Gauthier MD) Gallstone Acute hemorrhoid Allergic urticaria Social History Alcohol intake: current Alcohol intake frequency: holidays/special occasions only Patient Tobacco Use Status: Never used Tobacco Substance Use Type: Marijuana Review of Systems Const Denies chills and Denies fever(s) Card Denies chest pain, Denies dyspnea and Denies dyspnea on exertion Resp Denies cough, Denies dyspnea and Denies dyspnea on exertion GI Denies hematochezia and Denies change in bowel habits Denies hematuria and Denies difficulty urinating Musc Denies back pain and Denies limited range of motion Neuro Denies focal weakness and Denies convulsions Psych Denies depression and Denies mood swings Physical Exam Const General: comfortable and no acute distress Orientation/consciousness: patient oriented x3 Neck Neck: Yes no lymphadenopathy Resp Auscultation: clear to auscultation bilaterally Cardio Rhythm: regular rhythm GI Palpation (GI): Soft to palpation, nontender and no guarding Neuro General: patient oriented x3 Assessment & Plan Assessment & Plan (1) Gallstone: Code(s): K80.20 - Calculus of gallbladder without cholecystitis without obstruction Plan: He had gone to the ER last April 27 because of vomiting. At that time, he says that he never had any pain on the abdomen, much less on the right upper quadrant. He however was sent because of a gallstone which seems to be an incidental finding. His symptoms appear to have been from some form of gastroenteritis He says he does not want to proceed with cholecystectomy at this time as he had always thought that he had some form of food poisoning or gastroenteritis. He has never had any problems since that time I told him to monitor his symptoms closely. I gave him my card so that he can follow up with me once he considers cholecystectomy. I did Coding Level of Care Code New Pt Level 3 (29088) Diagnoses Gallstone K80.20
== END 2023-05-12 14:01 | disposition home or self-care (01) ==
PROVIDERS: PCP General Practice; Visit Provider Surgery
DX: K80.20 Calculus of gallbladder without cholecystitis without obstruction (principal)
CPT/HCPCS: 99203

== ENCOUNTER → 2023-05-12 13:28 | Outpatient (BNVA) | payer MEDICAID, SELFPAY | PROVIDERS: PCP General Practice; Visit Provider Surgery | DX: K80.20 Calculus of gallbladder without cholecystitis without obstruction (principal) | CPT/HCPCS: 99202 ==

== ENCOUNTER 2024-03-01 15:30 | Outpatient (REF) | payer MEDICAID, SELFPAY ==
[2024-03-02 04:46] LABS: HIV AB/AG Nonreactive (Nonreactive); HIV Num 1 0.06 S/CO (0.00-0.99); ~HepC Num1 0.22 S/CO (0.00-0.79); ~Hepatitis C Antibody Nonreactive (Nonreactive)
[2024-03-02 07:11] LABS: CT PCR NOT DETECTED (Not Detect.); NG PCR NOT DETECTED (Not Detect.)
[2024-03-03 12:33] LABS: RPR Rapid Plasma Reagin REACTIVE (NON-REACTIVE)
== END 2024-03-01 15:31 | disposition home or self-care (01) ==
LOC: HO.HHCL 15:30
PROVIDERS: Visit Provider General Practice
DX: Z11.4 Encounter for screening for human immunodeficiency virus [HIV] (principal); R21 Rash and other nonspecific skin eruption; Z86.19 Personal history of other infectious and parasitic diseases
CPT/HCPCS: 86592; 86593; 86803; 87389; 87491; 87591

== ENCOUNTER 2024-03-31 08:30 | Emergency (ER) | payer MEDICAID, SELFPAY ==
[2024-03-31 08:33] VITALS: BP 125/84; PULSE 93; RESP 20; TEMP 36.8; O2SAT 96; BMI 17.5
[2024-03-31 08:52] LABS: Appearance Urine Cloudy; Color Urine Yellow; Glucose Urine UA Negative (Negative); Leukocyte Esterase Urine Negative (Negative); Nitrite Urine Negative (Negative); PH 6.5 (5.0-9.0); Specific Gravity - Urine >= 1.030 (1.005-1.025); Urine Blood Negative (Negative); Urine Ketones Negative (Negative); Urine Protein Negative (Neg-Trace)
--- NOTE | 2024-03-31 09:10 | ED_ITS ---
HPI - Male Genitourinary General Chief complaint: Urogenital-Male Stated complaint: STD testing Time Seen by Provider: 03/31/24 09:09 Source: patient Mode of arrival: ambulatory Limitations: no limitations History of Present Illness ED Provider: Khadijah Schilling PA-C HPI Narrative: Patient is a 28 year old assigned male at with a history of gallstones presenting to the emergency department today with recent chlamydia exposure. Patient states that he had sex with a partner recently who informed him that he tested positive for chlamydia. Patient denies any symptoms at this time. Patient denies any dizziness, lightheadedness, abdominal pain, nausea, vomiting, fever, chills, blurry vision, double vision, loss of vision, chest pain, difficulty breathing, shortness of breath, back pain, night sweats, pain with urination, increased urinary frequency, increased urinary urgency, blood in his urine or stool, syncope or a near syncopal episode, recent trauma or falls, bowel incontinence, bladder incontinence, or any other complaints at this time. Relieving factors: none Exacerbating factors: none Associated symptoms: Reports denies other symptoms Related Data Sexually active: Yes Previous Rx's ?Medication ?Instructions ?Recorded doxycycline hyclate 100 mg tablet 100 mg PO BID #14 tabs 07/14/20 famotidine 20 mg tablet (Pepcid) 20 mg PO DAILY abdominal 03/16/23 discomfort #7 tabs prednisone 20 mg tablet 40 mg (2 x 20 mg) PO DAILY 5 days 03/16/23 #10 tabs ondansetron 4 mg disintegrating 4 mg PO Q8H PRN nausea and 04/27/23 tablet vomiting #20 tabs doxycycline hyclate 100 mg tablet 100 mg PO BID 7 days #14 tabs 03/31/24 Allergies Allergy/AdvReac Type Severity Reaction Status Date / Time aspirin [From HEATHER-SELTZER] Allergy Intermediate LIP Verified 03/31/24 08:35 SWELLING citric acid Allergy Intermediate LIP Verified 03/31/24 08:35 [From HEATHER-SELTZER] SWELLING sodium bicarbonate Allergy Intermediate LIP Verified 03/31/24 08:35 [From HEATHER-SELTZER] SWELLING naproxen [From Aleve] Allergy Swelling Verified 03/31/24 08:35 ENVIRONMENTAL AdvReac Unknown RASH Uncoded 03/31/24 08:35 Review of Systems Constitutional: Constitutional: Reports no additional constitutional complaints, Denies chills, Denies fever(s) and Denies night sweats Eyes: Eyes: Reports no additional eye complaints, Denies blurry vision, Denies change in vision, Denies diplopia, Denies eye discharge, Denies loss of vision and Denies eye pain ENT: Denies dizziness Cardiovascular: Cardiovascular: Reports no additional cardiovascular complaints, Denies chest pain, Denies lightheadedness, Denies Loss of Consciousness and Denies dyspnea Respiratory: Respiratory: Reports no additional respiratory complaints and Denies dyspnea Gastrointestinal: Gastrointestinal: Reports no additional gastrointestinal complaints, Denies abdominal pain, Denies melena, Denies hematochezia, Denies change in bowel habits and Denies change in stool character Genitourinary: Genitourinary: Reports no additional male genitourinary complaints, Denies hematuria, Denies oliguria, Denies difficulty urinating, Denies dysuria, Denies urinary frequency, Denies urinary hesitancy, Denies urinary incontinence and Denies urinary urgency Musculoskeletal: Musculoskeletal: Reports no additional musculoskeletal complaints, Denies numbness and Denies tingling Neurologic: Denies dizziness, Denies loss of vision, Denies numbness and Denies tingling Psychiatric: Psychiatric: Reports no additional psychiatric complaints Endocrine: Endocrine: Reports no additional endocrine complaints Hematologic/Lymphatic: Hematologic/Lymphatic: Reports no additional hematologic/lymphatic complaints Allergic/Immunologic: Allergic/Immunologic: Reports no additional allergic/immunologic complaints [facility] Past Medical History Attestation statement: The following information was validated with the patient. Source: old records reviewed and nursing notes reviewed Medical History Gallstone Acute hemorrhoid Allergic urticaria Social History Social History Alcohol intake: current Alcohol intake frequency: holidays/special occasions only Patient Tobacco Use Status: Never used Tobacco Substance Use Type: Marijuana Advance Directives: No Advance Directives Information Provided: Yes Physical Exam Vital Signs: Vital Signs: Last Vital Signs Temp 98.2 F 03/31/24 08:33 Pulse 93 03/31/24 08:33 Resp 20 03/31/24 08:33 BP 125/84 03/31/24 08:33 Pulse Ox 96 03/31/24 08:33 O2 Del Method Room Air 03/31/24 08:33 BMI result Body Mass Index 17.5 Const: General: cooperative, no acute distress, alert and awake Nutritional Appearance: well nourished Orientation/consciousness: patient oriented x3 Limitations: no limitations HEENT: Head: Yes normal to inspection and Yes atraumatic Ears: hearing grossly normal bilaterally and external ears normal General nose exam: Normal external nose present, no nasal discharge noted and no epistaxis Face and sinus: Yes normal facial exam, No abrasion and No laceration Mouth: Normal oral and palatal mucosa present, no drooling and no muffled voice Eyes: General: appearance normal, both eyes and all related structures Periorbital: periorbital findings normal Eyelids: Yes eyelids normal Conjunctivae: conjunctivae normal Pupils: Equal, round and reactive pupils present EOM: EOMs intact bilaterally Neck: Neck: Yes normal visual inspection, Yes full ROM and Yes no lymphadenopathy Chest: Chest palpation & inspection: normal inspection of the chest Resp: Effort & Inspection: normal respiratory effort and able to speak in complete sentences GI: Inspection: Yes normal to inspection Neuro: General: patient oriented x3 and moves all extremities Cranial nerves: Yes Equal, round and reactive pupils present Cognition (Neuro): normal cognition Extrem: General: Yes normal to inspection, Yes full ROM and Yes capillary refill normal Psych: Appearance: grossly normal Mental Status: mental status grossly normal Affect: normal affect Attitude: cooperative Thought process: Normal thought process present Thought content: Normal thought content present Insight: Good insight present (Psych) Medical Decision Making Medical Decision Making MDM Narrative: Patient is a 28 year old assigned male at with a history of gallstones presenting to the emergency department today for STI testing / treatment after a recent partner tested positive for Chlamydia. Patient's physical exam was unremarkable. Patient's urine showed no acute process. Patient's CT/NG is pending at this time. Patient declined any further STI testing including Syphil is and HIV. I explained my physical exam findings as well as all test results to the patient. I answered all questions asked by the patient. Given patient's contact with a positive individual, treatment initiated. I stressed the importance of the patient taking his medication as directed (either prescribed or as the over the counter packaging recommends). I stressed the importance of the patient following up with his primary care provider. I stressed the importance of the patient returning to the emergency department immediately if his symptoms were to worsen or if he were to develop any dizziness, shortness of breath, difficulty breathing, chest pain, blurry vision, loss of vision, nausea, vomiting, abdominal pain, fever, chills, back pain, or any other complaints. Patient verbalized agreement and understanding with this treatment plan and discharge. Differential Diagnosis Differential Diagnoses: The differential diagnosis associated with the presentation includes STI testing STI treatment Chlamydia Gonorrhea Admission/Observation Consideration of admission/observation: Escalation of care including admission/observation considered Patient would have been admitted to the hospital had his work up had any findings where hospital admission was appropriate and his clinical presentation warranted hospital admission. Lab Data [facility] Lab Attestation statement: I reviewed the patient's lab results. My interpretation of these results are in the [facility] Rationale portion of this note. Labs: Lab Results 03/31/24 Range/Units 08:42 Urine Color Yellow Urine Appearance Cloudy Urine pH 6.5 (5.0-9.0) Ur Specific Carmen >= 1.030 H (1.005-1.025) Urine Protein Negative (Neg-Trace) mg/dL Urine Glucose (UA) Negative (Negative) mg/dL Urine Ketones Negative (Negative) mg/dL Urine Blood Negative (Negative) Urine Nitrite Negative (Negative) Ur Leukocyte Esterase Negative (Negative) Prescription Management I considered prescription management with: Antibiotic (patient prescribed an antibiotic for possible STI) Discharge Plan Discharge Clinical Impression: Screen for STD (sexually transmitted disease) Patient Disposition: Home, Self-Care Instructions: Sexually Transmitted Diseases (ED), Male Condom Use (ED), Safe Sex Practices (ED) Additional Instructions: At this time - your testing is pending however, given your recent contact with a known positive individual, we will initiate treatment. We will call you if your results are positive. Follow up with your primary care provider. Return to the emergency department immediately if you develop any dizziness, shortness of breath, difficulty breathing, chest pain, blurry vision, loss of vision, nausea, vomiting, abdominal pain, fever, chills, back pain, or any other complaints. Please see the information below about our Patient Portal. If you are not yet enrolled in the [facility] Patient Portal, you will receive an enrollment email invitation following your visit to any [facility] setting. You may also self-enroll in the Patient Portal by visiting our website: [email or web address] The following information is required to access the Patient Portal: - Your [facility] Medical Record Number - Your personal home email address (must match what is in your electronic medical record, Registration staff can assist with this) - Name - Date of Capabilities of the Patient Portal: - Message some providers - View upcoming appointments - Access your health summary, medical history, and visit history - View current conditions and allergies - View procedure and lab results - View your medications, including guidelines, side effects, and precautions - Complete pre-appointment questionnaires requested by your provider - Ready summary reports of your office visits and procedures To access the Patient Portal Mobile Barbara, follow these directions: - Search [employer] in the Barbara Store or AnyCloud Store - Download the Barbara - Search for [facility] - Enter your login/password Prescriptions: New doxycycline hyclate 100 mg tablet 100 mg PO BID 7 Days Qty: 14 0RF No Action doxycycline hyclate 100 mg tablet 100 mg PO BID Qty: 14 0RF prednisone 20 mg tablet 40 mg PO DAILY 5 Days Qty: 10 0RF famotidine [Pepcid] 20 mg tablet 20 mg PO DAILY Qty: 7 0RF ondansetron 4 mg tablet,disintegrating 4 mg PO Q8H PRN (Reason: nausea and vomiting) Qty: 20 0RF Referrals: [facility] [Provider Group] (In the future, you can present to [facility] for testing / treatment. ) Yolis Kimbrough MD [Primary Care Provider] - Print Language: Vietnamese
[2024-03-31] MEDS: cefTRIAXone sodium 500 MG, Lidocaine HCl 1 % MPF 1 ML IM (09:54)
[2024-03-31] MEDS: Doxycycline Monohydrate 100 MG CAPSULE PO (09:54)
[2024-03-31 10:01] VITALS: BP 125/84; PULSE 93; RESP 20; TEMP 36.8; O2SAT 96
[2024-03-31 11:10] LABS: CT PCR NOT DETECTED (Not Detect.); NG PCR NOT DETECTED (Not Detect.)
== END 2024-03-31 10:01 | disposition home or self-care (01) ==
PROVIDERS: Emergency Provider Emergency Medicine Emergency Medical Services; PCP General Practice
DX: Z20.2 Contact with and (suspected) exposure to infections with a predominantly sexual mode of transmission (principal)
CPT/HCPCS: 81003; 87491; 87591; 96372; 99282; 99284; J0696; J2003

== ENCOUNTER 2025-02-01 11:18 | Outpatient (AMB) | payer MEDICAID, SELFPAY ==
[2025-02-01 11:20] VITALS: BMI 19.8
--- NOTE | 2025-02-01 11:20 | MHC.OFFVIS ---
Vital Signs 02/01/25 11:20 Height 6 ft 3 in Weight 158 lb 2 oz BMI 19.8 Intake Visit Reasons: Hemorrhoids Intake Note: This patient presents for an assessment for hemorrhoids. Pt c/o; no complaints at this time. Pellet Preparation Operator Required: No Accompanied by: Self / Same As Patient Allergies aspirin (From HEATHER-SELTZER) Allergy (Intermediate, Verified 02/01/25 11:28) LIP SWELLING citric acid (From HEATHER-SELTZER) Allergy (Intermediate, Verified 02/01/25 11:28) LIP SWELLING sodium bicarbonate (From HEATHER-SELTZER) Allergy (Intermediate, Verified 02/01/25 11:28) LIP SWELLING naproxen (From Aleve) Allergy (Verified 02/01/25 11:28) Swelling ENVIRONMENTAL Adverse Reaction (Unknown, Uncoded 02/01/25 11:28) RASH Medication List - Last Reconciled 02/01/25 by Nicko Gauthier MD No Known Home Meds HPI HPI Hemorrhoids: Details: 29-year-old male referred for hemorrhoid issues. He says he knows he has had hemorrhoids for many years. As a matter fact, a few years ago he said he had I and D for a thrombosed hemorrhoid he says About a month ago he was noticing passage of bright blood per rectum on wiping and this was also eventually seen on the toilet itself. He says that this has since resolved. He denied any pain. He is currently feels well. Denies any problems with bowel movements. He does state that he used to have problems with constipation many was much younger. [facility] Medical History Bleeding hemorrhoids Gallstone Acute hemorrhoid Allergic urticaria Surgical History No pertinent past surgical history Social History Alcohol intake: current Alcohol intake frequency: holidays/special occasions only Patient Tobacco Use Status: Never used Tobacco Substance Use Type: Marijuana Review of Systems Const Denies chills and Denies fever(s) Card Denies chest pain, Denies dyspnea and Denies dyspnea on exertion Resp Denies cough, Denies dyspnea and Denies dyspnea on exertion GI Reports hematochezia and Denies change in bowel habits Denies hematuria and Denies difficulty urinating Musc Denies back pain and Denies limited range of motion Neuro Denies focal weakness and Denies convulsions Psych Denies depression and Denies mood swings Physical Exam Const General: comfortable and no acute distress Orientation/consciousness: patient oriented x3 Neck Neck: Yes no lymphadenopathy Resp Auscultation: clear to auscultation bilaterally Cardio Rhythm: regular rhythm GI Other: Rectal exam shows external hemorrhoids in the left and right side, not bleeding, non thrombosed Palpation (GI): Soft to palpation, nontender and no guarding Neuro General: patient oriented x3 Office Procedures Anoscopy He was in kneeling chon-knife position. The anoscope was gently inserted. A full examination of the anal canal was done. He did not have mixed internal and external hemorrhoids, moderate-sized, on both the left and right side. There were no lesions seen. There was no fissure or ulceration. There was no induration. There was no bleeding. [id number] Assessment & Plan Assessment & Plan (1) Bleeding hemorrhoids: Code(s): K64.9 - Unspecified hemorrhoids Category: Medical Plan: He has had some passage of bright blood per rectum last month. This has resolved Examination shows internal external hemorrhoids, moderate size. This has with the likely source of his outlet bleeding. I explained to him that currently, in view of the absence of any significant bleeding or symptoms, we do not necessarily need to proceed with hemorrhoidectomy. I explained to him this option for severe symptoms He says he will come back to the office on a PRN basis if he feels that he needs to be re-evaluated for possible hemorrhoidectomy. He understands the plan as above and is comfortable with this. Coding Level of Care Code New Pt Level 3 (78297) Diagnoses Bleeding hemorrhoids K64.9 CPT Codes Details - CPT: 70074-[id number] ([id number])
--- OUTSIDE RECORDS SUMMARY | 2025-02-01 14:25 | XMS_ITS | Encounter Summary ---
Author Organization [employer] Address [address] [facility] [address] [place] [address] Care Team Providers Care Canvas Cutter Name Role Phone Stella Murphy MD Primary Care Provider Unava Yolis Gunter MD Primary Care Provider [phone] Encounter Details Date Type Department Care Team (Latest Contact Info) Description 02/16/2019 Abstract [facility] CONVERSIONS Dental, Provider, DDS Social History Tobacco Use Types Packs/Day Years Used Date Smoking Tobacco: Never Assessed Sex and Gender Information Value Date Recorded Sex Assigned at Male 02/09/2022 10:21 AM EDT Legal Sex Male 10:21 AM EDT Gender Identity Male 02/09/2022 10:21 AM EDT Sexual Orientation Choose not to disclose 2021 10:21 AM EDT documented as of this encounter Plan of Treatment Not on file documented as of this encounter Visit Diagnoses Not on filedocumented in this encounter Care Teams Canvas Cutter Relationship Specialty Start Date End Date Stella Murphy MD PCP - General Family Medicine 03/16/19 06/03/22 Yolis Kimbrough MD [address] [place] [address] PCP - General Family Medicine 06/04/22 Minerva Montoya TreasurerNews Camera Operator 09/09/23 documented as of this encounter
--- OUTSIDE RECORDS SUMMARY | 2025-02-01 14:25 | XMS_ITS | Encounter Summary ---
Author Organization [employer] Address [address] [place] [address] Care Team Providers Care Zinc Plating Machine Operator Name Role Phone Yolis Kimbrough MD Primary Care Provider [phone] Encounter Details Date Type Department Care Team ([facility] st Contact Info) Description 11/04/2023 Telephone [facility] [address], [place] [id number] Yolis Kimbrough MD [address] [place] [address] Social History Tobacco Use Types Packs/Day Years Used Date Smoking Tobacco: Never Smokeless Tobacco: Never Alcohol Use Standard Drinks/Week Comments Yes 0 (1 standard drink = 0.6 oz pur e alcohol) social Depression Answer Date Recorded Patient Health Questionnaire-9 Score 0 09/10/2023 Patient Health Questionnaire-9 Score 0 09/10/2023 Last PHQ-9: Questionnaire Data Not on file 0 09/10/2023 Housing Stability Answer Date Recorded What is your housing situation today? I have diogenes mcdonough 09/10/[address] you li ve. Do you have problems with any of the following? None of the above 09/10/2023 Food Insecurity Answer Date Recorded Within the past 12 months, y ou worried that your food would run out before you got money to buy more: Never True 09/10/2023 Within the past 12 months,th e food you bought just didn't last and you didn't have enough money to get more: Never True Transportation Answer Date Recorded In the past 12 months, has l ack of transportation kept you from medical appts, meetings, work or from getting things needed for daily living? Yes, it has kept me from medical appointments or getting medications. 09/10/2023 Utilities Answer Date Recorded In the past 12 months, has t he electric, gas, oil or water company threatened to shut off services in your home? No 09/10/2023 Depression Answer Date Recorded Patient Health Questionnaire-2 Score 0 09/10/2023 Sex and Gender Information Value Date Recorded Sex Assigned at Male 02/09/2022 10:21 AM EDT Legal Sex Male 10:21 AM EDT Gender Identity Male 02/09/2022 10:21 AM EDT Sexual Orientation Choose not to disclose 2021 10:21 AM EDT documented as of this encounter Miscellaneous Notes * Telephone Encounter - Sanjuanita Alvarado RN - 11/04/2023 11:57 AM EDT I attempted to contact patient on 10/21/23 and left VM message but I did not receive a return call back. I called today and spoke with Patient's Mom to discuss that Bill does not qualify for a handicapped placard as he does not have a mobility diagnosis and does not have any difficulty with ambulation and does not use a device. Patient with autism and he told his Mom he just wanted to have a placard to park close. documented in this encounter Plan of Treatment Not on file documented as of this encounter Visit Diagnoses Not on filedocumented in this encounter Additional Health Concerns Assessment Noted Time PHQ-9 Depression Total Score: 0 09/10/19 24 2:56 PM EDT documented as of this encounter Care Teams Zinc Plating Machine Operator Relationship Specialty Start Date End Date Yolis Kimbrough MD [address] [place] [address] PCP - General Family Medicine 06/04/22 Minerva Montoya Stonemason ApprenticeMotor Analyst 09/09/23 documented as of this encounter
--- OUTSIDE RECORDS SUMMARY | 2025-02-01 14:26 | XMS_ITS | Encounter Summary ---
Author Organization [employer] Address [address] [facility] [address] [place] [address] Care Team Providers Care Olive Pitter Name Role Phone Yolis Kimbrough MD Primary Care Provider [phone] Encounter Details Date Type Department Care Team (Late st Contact Info) Description 04/29/2023 Abstract [facility] [address] [place] [address] Dez Campbell Social History Tobacco Use Types Packs/Day Years Used Date Smoking Tobacco: Never Smokeless Tobacco: Never Alcohol Use Standard Drinks/Week Comments Yes 0 (1 standard drink = 0.6 oz pur e alcohol) social Depression Answer Date Recorded Patient Health Questionnaire-2 Score 0 07/29/2022 Sex and Gender Information Value Date Recorded [...] on filedocumented in this encounter Care Teams Olive Pitter Relationship Specialty Start Date End Date Yolis Kimbrough MD [address] [place] [address] PCP - General Family Medicine 06/04/22 Minerva Montoya Hide WasherElectrical And Instrument Engineer 09/09/23 documented as of this encounter
--- OUTSIDE RECORDS SUMMARY | 2025-02-01 14:26 | XMS_ITS | Clinical Summary ---
Author Organization [employer] Address [address] [facility] [address] [place] [address] Care Team Providers Care Assistant Professor Of Surgery Name Role Phone Yolis Kimbrough MD Primary Care Provider [phone] Allergies Active Allergy Reactions Criticality Noted Date Comments Naproxen 07/13/2023 Aspirin Effervescent 07/13/2023 Aspirin 07/29/2022 Medications docusate sodium (Colace) 100 MG capsule Take by mouth twice a day. 1 Active emtricitabine-teno fovir DF (Truvada) 200-300 MG tablet Take 1 tablet by mouth in the morning. 2 Active EPINEPHrine (EpiPen 2-Keith) 0.3 MG/0.3ML injection syringe Inject 0.3 mg into the shoulder, thigh, or buttocks. 1 Active fexofenadine (Jo) 180 MG tablet Take 1 tablet by mouth at bed time. 1 Active hydrocortisone (Proctozone-HC) 2.5 % rectal cream Apply topically every 12 (twelve) hours. 9 Active phenylephrine 0.25% 0.25-14-74.9 % ointment use 1-2 times a day 1 Active ondansetron ODT (Zofran-ODT) 4 MG disintegrating tablet DISSOLVE 1 TABLET ON TONGUE EVERY 8 HOURS NEEDED FOR NAUSEA AND VOMITING 4 Active acetaminophen (Tylenol) 500 MG tabletIndications: History of tooth extraction, unspecified edentulism class Take 1 tablet (500 mg) by mouth every 6 (six) hours if needed for mild pain for up to 20 doses. 20 tablet 4 Active chlorhexidine (Peridex) 0.12 % solution Swish 15 mL morning and night for 1 minute. Spit, do not swallow. Do not eat or drink for 30 minutes following use. 473 mL 4 Active ipratropium (Atrovent) 0.03 % nasal sprayIndications:Joel OROURKE Administer 1 spray into each nostril every 12 (twelve) hours. 30 mL 12 5 026 Active hydrocortisone (Anusol-HC) 2.5 % rectal creamIndications:H emorrhoids, unspecified hemorrhoid type Insert into the rectum 2 times daily. 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 Assessment & Plan (05/10/2023 2:16 PM EST): tx 03/2023 Will recheck titers in 3-6 months Calculus of gallbladder with out cholecystitis without obstruction 05/10/2023 Rash and nonspecific skin eruption 03/24/2023 Assessment & Plan (03/30/2023 9:35 AM EST): Concern for infectious versus allergic versus drug reaction - STI labs ordered, considered Mpox but not in genitals and no history of vesicles - derm consult ordered as well He can try H1 blockers OTC and take the Pepcid he was given in the ED Addendum 03/30/23: Pt labs returned as negative for G/C, HIV, Hep C, and POS RPR in 1:64 titer - pt denied neurologic, ocular, or otic symptoms since onset of rash, so will treat for secondary syphilis (diffuse rash) with single dose of 2.4million unit of Penicillin IM Sexual behavior with high ri sk of exposure to communicable disease 07/30/2022 Assessment & Plan (05/10/2023 2:16 PM EST): Will check about restarting PreP Assessment & Plan (07/30/2022 10:00 AM EDT): Discussed other methods of PreP delivery He is interested, will talk with [facility] provider Gastroesophageal reflux disease without esophagi tis 07/30/2022 Hemorrhoids 03/20/2019 Assessment & Plan (07/30/2022 9:58 AM EDT): Well controlled, knows how to home manage Autistic disorder 12/02/2012 Assessment & Plan (07/30/2022 9:59 AM EDT): Continue psych Engagement in activities that he loves, such as writing Hyperbilirubinemia 12/02/2012 Low vision, both eyes 12/02/2012 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 Assessment & Plan (07/30/2022 9:59 AM EDT): Antihistamines prn Moderate potency steroids to lesions Constipation 11/17/2011 Dyssomnia 11/17/2011 Encounters Date Type Department Care Team Description 12/27/2024 11:15 AM EDT Office Visit [facility] [address] [place] [phone] Gali Daniel MD Rectal bleeding (Primary Dx); Hemorrhoids, unspecified hemorrhoid type 12/27/2024 Travel 12/22/2024 Telephone [facility] [address] [place] [address] [phone] Yolis Kimbrough MD Nurse Triage from Last 3 Months Immunizations Immunization Administration Dates Next Due DTaP 11/22/2008, 0,09/23/1995,02/13/1995,0 1994 HPV, Quadrivalent 05/27/2011 Hep A, ped/adol, 2 dose 08/20/2009 Hep B, Adolescent or Pediatric 08/08/2009,1994,1994,1994 Hib (HbOC) 09/23/1995,02/13/1995,1994 IPV 11/17/1999,09/23/1995,02/13/1995 ,1994 MMR 11/17/1999,09/23/1995 Meningococcal MPSV4 08/20/2009 Tdap 10/29/2020 Varicella 08/20/2009,04/20/2006 Social History Tobacco Use Types Packs/Day Years Used Date Smoking Tobacco: Never Smokeless Tobacco: Never Tobacco Cessation:Counseling Given: Not Answered Alcohol Use Standard Drinks/Week Comments Yes 0 [...] not to disclose 2021 10:21 AM EDT Last Filed Vital Signs Vital Sign Reading Time Taken Comments Blood Pressure 122/78 12/27/2024 11:06 AM EDT Pulse 99 12/27/2024 11:06 AM EDT Temperature 36.3 C (97.3 F) 12/27/2024 11:06 AM EDT Respiratory Rate 17 12/27/2024 11:0 6 AM EDT Oxygen Saturation 95% 12/27/2024 11: 06 AM EDT Inhaled Oxygen Concentration - - Weight 72.9 kg (160 lb 12.8 oz) 025 11:06 AM EDT Height 185.4 cm (6' 1 ) 12/27/2024 11:0 6 AM EDT Body Mass Index 21.22 12/27/2024 11:06 AM EDT Plan of Treatment Health Maintenance Due Date Last Done Comments Disability Screening 1994 Alcohol/Substance Use Screening 2006 Family Planning (PISQ) 2009 Hepatitis A Vaccines (2 of 2 - 2-dose series) 02/20/2010 08/20/2009 HPV Vaccines (2 - Male 3-dose series) 06/24/2011 05/27/2011 Dental X-Ray: Bitewings 09/13/2023 09/12/19 23, 01/20/2022, 02/16/2019, Additional history exists Dental Oral Exam 02/20/2024 08/19/2023, 02/2023, 01/20/2022, Additional history exists Dental Prophylaxis 02/20/2024 08/19/2023, 1 , 02/16/2019 Depression Screening 09/09/2024 09/10/2023, 09/10/19 24 SDOH Screening 09/09/2024 09/10/2023 COVID-19 Vaccine ( season) 2024 Influenza Vaccine (#1) 2024 Tobacco Screening 12/27/2025 12/27/2024 Dental X-Ray: Full Mouth 12/15/2026 024, 10/20/2022, 02/16/2019, Additional history exists DTaP/Tdap/Td Vaccines (7 - Td or Tdap) 10/29/2030 10/29/2020, 11/22/2008, 11/17/1999, Additional history exists Zoster Vaccines (1 of 2) 2044 RSV Patients and Patients Aged 60 years or older (1 - 1-dose 75+ series) 2069 HIB Vaccines Completed 09/23/1995, 07/1994, 1994 IPV Vaccines Completed 11/17/1999, 09/10, 02/13/1995, Additional history exists Hepatitis B Vaccines Completed 08/08/2009, 02/13/1995, 1994, Additional history exists Meningococcal Vaccine Aged Out 08/20/2009 No hood hiral eligible based on patient's age to complete this topic HIV Screening Completed 03/01/2024, 03/24/2023 Hepatitis C Screening Completed 03/01/2024, 023 Meningococcal B Vaccine Aged Out No l onger eligible based on patient's age to complete this topic Pneumococcal Vaccine: Pediatrics (0 to 5 Years) and At-Risk Patients (6 to 49) Years Aged Out No longer eligible based on patient's age to complete this topic RSV under 20 months Aged Out No longe r eligible based on patient's age to complete this topic Rotavirus Vaccines Aged Out No longer eligible based on patient's age to complete this topic Procedures Procedure Name Priority Date/Time Associated Diagnosis Comments HEPATITIS C AB W/REFL TO HCV RNA, QN, PCR Routine 03/01/2024 3:34 PM EST History of syphilis HIV 1/2 ANTIGEN/ANTIBODY, FOURTH GENERATION W/RFL Routine 03/01/2024 3:34 PM EST History of syphilis PANORAMIC RADIOGRAPHIC IMAGE Routine 12/15/2023 11:30 AM EDT Full PROPHYLAXIS - ADULT Routine 08/19/2023 2:00 PM EDT PERIODIC ORAL EVALUATION - ESTABLISHED PATIENT Routine 08/19/2023 2:00 PM EDT BITEWINGS - 4 RADIOGRAPHIC IMAGES Routine 09/11/2022 3:00 PM EDT from Last 3 Months or Most Recently Relevant to Health Maintenance Results * Hepatitis C Antibody with Reflex to HCV, RNA, Quantitative, Real-Time PCR (03/01/2024 3:34 PM EST) Hepatitis C Antibody Nonreactive Nonreactive [facility] Comment:Antibodies to HCV no t detected; does not exclude early acuteHCV infection. Blood Venous blood specimen / Unknown 03/01/2024 3:34 PM EST 03/01/2024 4:31 PM EST us Yolis Kimbrough MD LAB BLOOD ORDERABLES Final Res ult Performing Organization Address [facility] Co de Phone Number [facility] [address] [place] [address] [phone] * HIV-1/2 Antigen and Antibodies, Fourth Generation, with Reflexes (03/01/2024 3:34 PM EST) [facility] HIV AB/AG Nonreactive Nonreactive [facility] Comment:HIV-1 p24 Ag and/or HIV-1/HIV-2 Ab not detected.A test result that is nonreactive does not exclude thepossibility of exposure to or infection with HIV-1 and/orHIV-2. Nonreactive results in this assay for individualswith prior exposure to HIV-1 and/or HIV-2 may be due toantigen and antibody levels that are below the limit ofdetection of this assay.The [employer] HIV Ag/Ab Combo assay result andsupplemental assay results should be interpreted inconjunction with the patient's clinical presentation,history and other laboratory results. If the results areinconsistent with clinical evidence, additional testing issuggested to confirm the result. Blood Venous blood specimen / Unknown 03/01/2024 3:34 PM EST 03/01/2024 4:31 PM EST Yolis Kimbrough MD LAB BLOOD ORDERABLES Final Res ult Performing Organization Address [facility] Co de Phone Number [facility] [address] [place] [address] [phone] from Last 3 Months or Most Recently Relevant to Health Maintenance Insurance [facility] C3 DENTAL-[facility] MEDICAID STAND ADULT Care Teams Assistant Professor Of Surgery Relationship Specialty Start Date End Date Yolis Kimbrough MD [address] [place] [address] PCP - General Family Medicine 06/04/22 Minerva Montoya [employer] Team Member 09/09/23
== END 2025-02-01 11:40 | disposition home or self-care (01) ==
LOC: HO.HGS 11:19
PROVIDERS: PCP General Practice; Visit Provider Surgery
DX: K64.9 Unspecified hemorrhoids (principal)
CPT/HCPCS: 46600; 99213

== ENCOUNTER → 2025-02-01 11:18 | Outpatient (BNVA) | payer MEDICAID, SELFPAY | PROVIDERS: PCP General Practice; Visit Provider Surgery | DX: K64.9 Unspecified hemorrhoids (principal) | CPT/HCPCS: 46600; 99212 ==